=== PATIENT | male | born 1990 | race Two or more races ===

== ENCOUNTER 2022-08-17 00:30 | Emergency (ER) | payer MEDICAID ==
[~2022-08-17] VITALS: Ht 170.2 cm; Wt 122.8 kg
[2022-08-17 00:47] VITALS: BP 127/83
[2022-08-17 01:27] LABS: Urine Bacteria NONE SEEN /hpf (None Seen); Urine Blood 2+ /uL (Negative); Urine Hyaline Cast FEW /lpf (0 - 2); Urine Mucus FEW (None Seen); Urine Specific Gravity 1.032 (1.001-1.035); Urine WBC 3 /hpf (0 - 3)
[2022-08-17 01:40] LABS: Eosinophils % (auto) 1.9 % (0.0-7.0); Mean Corpuscular Hemoglobin 30.3 pg (28.0-32.0); Mean Corpuscular Hgb Conc. 34.8 g/dL (32.0-36.0); Neutrophils % (auto) 53.5 % (37.0-80.0)
[2022-08-17 01:45] LABS: Basophils # (auto) 0.1 10 ^3/uL (0-0.2); Basophils % (auto) 0.6 % (0.0-2.0); Eosinophils # (auto) 0.2 10 ^3/uL (0-0.8); Hematocrit 51.7 % (41.0-53.0); Lymphocytes # (auto) 3.8 10 ^3/uL (0.4-5.4); Mean Corpuscular Volume 87.1 fL (80.0-100.0); Monocytes # (auto) 0.8 10 ^3/uL (0-1.3); Neutrophils # (auto) 5.6 10 ^3/uL (1.6-8.6); Nucleated Red Blood Cells % 0.1 %; Red Blood Cells 5.94 10^6/uL (4.5-5.90); Red Cell Distribution Width 13.1 % (11.8-14.3); White Blood Cell 10.5 10^3/uL (4.4-10.8)
[2022-08-17 01:57] LABS: Albumin 4.7 g/dL (3.4-5.0); BUN/Creatinine Ratio 20.7; Calcium 9.2 mg/dL (8.5-10.1); Potassium 3.7 mmol/L (3.5-5.1)
[2022-08-17 02:00] LABS: Bilirubin, Total 1.1 mg/dL (0.2-1.0); Total Protein 8.5 g/dL (6.4-8.2)
[2022-08-17] MEDS ORDERED: ONDANSETRON ODT 4 MG TAB PO ONE (03:30)
[2022-08-17] MEDS ORDERED: CIPROFLOXACIN HCL 500 MG TAB PO ONE (06:00)
[2022-08-17] MEDS ORDERED: CIPR-173 PO (06:03)
== END 2022-08-17 07:11 | disposition home or self-care (01) ==
LOC: ER 00:30
DX: N39.0 Urinary tract infection, site not specified (principal)
CPT/HCPCS: 36415; 74176; 80053; 81001; 85025; 99284; Q0162

== ENCOUNTER 2024-05-29 06:27 | Inpatient (IN) | payer MEDICAID ==
[~2024-05-29] VITALS: Ht 172.7 cm; Wt 124.0 kg
[~2024-05-29 06:27] MED LIST: CIPR-173 PO
[2024-05-29] MEDS: HYDROcodone-ACET 10/325MG TAB PO ONE (07:48)
[2024-05-29 07:51] LABS: Basophils # (auto) 0.1 10 ^3/uL (0-0.2); Basophils % (auto) 0.7 % (0.0-2.0); Eosinophils # (auto) 0.2 10 ^3/uL (0-0.8); Hematocrit 46.4 % (41.0-53.0); Hemoglobin 16.4 g/dL (13.5-17.5); Lymphocytes # (auto) 2.5 10 ^3/uL (0.4-5.4); Lymphocytes % (auto) 24.3 % (10.0-50.0); Mean Corpuscular Hemoglobin 31.7 pg (28.0-32.0); Mean Corpuscular Hgb Conc. 35.3 g/dL (32.0-36.0); Mean Corpuscular Volume 89.7 fL (80.0-100.0); Monocytes # (auto) 0.9 10 ^3/uL (0-1.3); Monocytes % (auto) 8.4 % (0.0-12.0); Neutrophils # (auto) 6.6 10 ^3/uL (1.6-8.6); Neutrophils % (auto) 64.6 % (37.0-80.0); Nucleated Red Blood Cells % 0.1 %; Platelet Count (auto) 291 10^3/uL (140-450); Red Blood Cells 5.17 10^6/uL (4.5-5.90); White Blood Cell 10.2 10^3/uL (4.4-10.8)
[2024-05-29 07:52] LABS: Chloride 103 mmol/L (98-107); Sodium 138 mmol/L (136-145)
[2024-05-29 07:53] LABS: Anion Gap 8 (5-15); Carbon Dioxide 27 mmol/L (20-31)
[2024-05-29 07:54] LABS: Calcium 9.9 mg/dL (8.7-10.4)
[2024-05-29 07:58] LABS: Glucose 107 mg/dL (74-106)
[2024-05-29 07:59] LABS: BUN/Creatinine Ratio 17.1 (10.0-20.0); Blood Urea Nitrogen 14 mg/dL (9-23)
[2024-05-29] MEDS: methylPREDNISolone SOD SUCC 125 MG/2 ML VL IV ONE (09:04)
[2024-05-29] MEDS: diphenhdrAMINE HCL 50 MG/1 ML VL IV ONE (09:05)
[2024-05-29] MEDS ORDERED: ONDANSETRON HCL 4 MG/2 ML VIAL IV PRN (10:45)
[2024-05-29] MEDS ORDERED: MORPHINE SULFATE INJ 2 MG/ml SYRG IV PRN (10:45)
[2024-05-29] MEDS ORDERED: NITROGLYCERIN 0.4 MG SL TAB SL PRN (10:45)
[2024-05-29] MEDS ORDERED: DOCUSATE SOD 100 MG CAP PO PRN (10:45)
[2024-05-29] MEDS: SODIUM CHLORIDE 0.9% 1,000 ML IV SCH (10:51)
[2024-05-29] MEDS: CLINDAMYCIN 600MG IV 50 ML IV SCH (15:19)
[2024-05-29] MEDS: HYDROcodone-ACET 5/325MG TAB PO PRN (18:46)
[2024-05-29] MEDS: methylPREDNISolone SOD SUCC 125 MG/2 ML VL IV SCH (22:05)
[2024-05-29] MEDS ORDERED: ENAL1TAB48 PO (22:50)
[2024-05-29 23:59] VITALS: BP 145/78; PULSE 72; RESP 18; TEMP 97.9; O2SAT 94
[2024-05-30] VITALS (9 sets, daily range): BP systolic 108–135; BP diastolic 63–78; PULSE 17–82; RESP 16–19; TEMP 97.6–98.4; O2SAT 94–95
[2024-05-30] MEDS: ENALAPRIL MALEATE 10 MG TAB PO ONE (00:34)
[2024-05-30] MEDS ORDERED: LEVO50TA7 PO (00:56)
[2024-05-30 07:38] LABS: Basophils # (auto) 0 10 ^3/uL (0-0.2); Basophils % (auto) 0.1 % (0.0-2.0); Eosinophils # (auto) 0 10 ^3/uL (0-0.8); Hematocrit 46.4 % (41.0-53.0); Hemoglobin 16.5 g/dL (13.5-17.5); Lymphocytes # (auto) 2.1 10 ^3/uL (0.4-5.4); Lymphocytes % (auto) 13.6 % (10.0-50.0); Mean Corpuscular Hgb Conc. 35.6 g/dL (32.0-36.0); Monocytes # (auto) 0.8 10 ^3/uL (0-1.3); Monocytes % (auto) 5.5 % (0.0-12.0); Neutrophils # (auto) 12.3 10 ^3/uL (1.6-8.6); Neutrophils % (auto) 80.8 % (37.0-80.0); Nucleated Red Blood Cells % 0.1 %; Platelet Count (auto) 335 10^3/uL (140-450); Red Blood Cells 5.15 10^6/uL (4.5-5.90); Red Cell Distribution Width 13.2 % (11.8-14.3); White Blood Cell 15.2 10^3/uL (4.4-10.8)
[2024-05-30 07:53] LABS: Alanine Aminotransferase 49 U/L (7-40); Albumin 4.8 g/dL (3.2-4.8); Alkaline Phosphatase 60 U/L (46-116); Anion Gap 10 (5-15); Aspartate Aminotransferase 10 U/L (13-40); BUN/Creatinine Ratio 19.5 (10.0-20.0); Bilirubin, Total 0.7 mg/dL (0.2-1.0); Blood Urea Nitrogen 16 mg/dL (9-23); Calcium 9.8 mg/dL (8.7-10.4); Carbon Dioxide 24 mmol/L (20-31); Chloride 103 mmol/L (98-107); Glucose 141 mg/dL (74-106); Potassium 3.9 mmol/L (3.5-5.1); Sodium 137 mmol/L (136-145); Total Protein 7.7 g/dL (5.7-8.2)
[2024-05-30] MEDS: diphenhdrAMINE HCL 50 MG/1 ML VL IV PRN (22:27)
[2024-05-30] MEDS: ENALAPRIL MALEATE 10 MG TAB PO SCH (22:27)
[2024-05-31 01:00] VITALS: BP 118/66; PULSE 73; RESP 17; TEMP 97.7; O2SAT 97
[2024-05-31 05:00] VITALS: BP 120/68; PULSE 59; RESP 17; TEMP 97.6; O2SAT 96
[2024-05-31 08:00] VITALS: PULSE 51; RESP 16; O2SAT 96
[2024-05-31 09:00] VITALS: BP 113/69; PULSE 51; RESP 18; TEMP 97.9; O2SAT 97
[2024-05-31] MEDS ORDERED: METH4PAK PO (12:23)
[2024-05-31] MEDS ORDERED: HYDR-4902 PO (12:23)
[2024-05-31] MEDS ORDERED: CLIN1CAP70 PO (12:23)
[2024-05-31 13:00] VITALS: BP 117/71; PULSE 62; RESP 18; TEMP 98; O2SAT 96
[2024-05-31 17:00] VITALS: BP 119/67; PULSE 67; RESP 18; TEMP 97.9; O2SAT 94
== END 2024-05-31 17:41 | disposition home or self-care (01) | DRG 383 ==
LOC: ER 06:27 → OVERFLOW 10:40 → WEST WING 23:45
PROVIDERS: ADMIT Nurse Practitioner Family; ATTEND Family Medicine
DX: L03.211 Cellulitis of face (principal); E78.00 Pure hypercholesterolemia, unspecified; I10 Essential (primary) hypertension; R51.9 Headache, unspecified
CPT/HCPCS: 36415; 70450; 80048; 80053; 85025; 96374; 96375; 99291; G0378; J3490

== ENCOUNTER 2024-06-11 11:02 | Emergency (ER) | payer MEDICAID ==
[~2024-06-11] VITALS: Ht 182.9 cm; Wt 122.6 kg
[~2024-06-11 11:02] MED LIST changes: -CIPR-173 PO; +CLIN1CAP70 PO; +ENAL1TAB48 PO; +HYDR-4902 PO; +LEVO50TA7 PO; +METH4PAK PO
[2024-06-11 12:01] VITALS: BP 131/92; PULSE 64; RESP 17; TEMP 98.4; O2SAT 96
[2024-06-11 12:04] LABS: Basophils # (auto) 0.1 10 ^3/uL (0-0.2); Basophils % (auto) 0.8 % (0.0-2.0); Eosinophils # (auto) 0.2 10 ^3/uL (0-0.8); Eosinophils % (auto) 2.1 % (0.0-7.0); Hematocrit 46.9 % (41.0-53.0); Hemoglobin 16.6 g/dL (13.5-17.5); Lymphocytes # (auto) 2.8 10 ^3/uL (0.4-5.4); Lymphocytes % (auto) 38.2 % (10.0-50.0); Mean Corpuscular Hemoglobin 31.9 pg (28.0-32.0); Mean Corpuscular Hgb Conc. 35.5 g/dL (32.0-36.0); Mean Corpuscular Volume 90.1 fL (80.0-100.0); Monocytes # (auto) 0.6 10 ^3/uL (0-1.3); Monocytes % (auto) 8.1 % (0.0-12.0); Neutrophils # (auto) 3.7 10 ^3/uL (1.6-8.6); Neutrophils % (auto) 50.8 % (37.0-80.0); Nucleated Red Blood Cells % 0.1 %; Platelet Count (auto) 262 10^3/uL (140-450); White Blood Cell 7.2 10^3/uL (4.4-10.8)
[2024-06-11 12:29] LABS: Alanine Aminotransferase 69 U/L (7-40); Albumin 4.7 g/dL (3.2-4.8); Alkaline Phosphatase 54 U/L (46-116); Anion Gap 5 (5-15); Aspartate Aminotransferase 25 U/L (13-40); Blood Urea Nitrogen 11 mg/dL (9-23); Carbon Dioxide 29 mmol/L (20-31); Chloride 105 mmol/L (98-107); Glucose 95 mg/dL (74-106); Lipase 42 U/L (12-53); Potassium 4.8 mmol/L (3.5-5.1); Sodium 139 mmol/L (136-145); Total Protein 7.3 g/dL (5.7-8.2)
[2024-06-11] MEDS: KETOROLAC TROMETH 60MG/2ML VIAL IM ONE (13:04)
[2024-06-11] MEDS ORDERED: DOCU-94 PO (13:07)
== END 2024-06-11 13:16 | disposition home or self-care (01) ==
LOC: ER 11:02
DX: K57.30 Diverticulosis of large intestine without perforation or abscess without bleeding (principal); K76.0 Fatty (change of) liver, not elsewhere classified; K59.00 Constipation, unspecified; I10 Essential (primary) hypertension; Z79.890 Hormone replacement therapy; Z79.899 Other long term (current) drug therapy
CPT/HCPCS: 36415; 74176; 80053; 83690; 85025; 96372; 99285; J1885

== ENCOUNTER 2024-12-27 10:44 | Emergency (ER) | payer MEDICAID ==
[~2024-12-27] VITALS: Ht 170.2 cm; Wt 126.9 kg
[~2024-12-27 10:44] MED LIST changes: +DOCU-94 PO
--- NOTE | 2024-12-27 11:45 | ED.PDOC ---
GI ASSESSMENT HPI Comments 34 y.o male with PMHx of HTN and hyperlipidemia, presents to the ED for a chief complaint of right sided abdominal pain associated with distention and nausea that started 3 days ago. Patient reports pain is intermittent, when it presents it is described as sharp, non radiating and has no alleviating factors. Patient reports sometimes pain presents after drinking water but has no other worsening factors, despite eating or moving. Patient also mentions feeling constipated, last bowel movement was yesterday but was described as very minimal. Patient denies any vomiting, diarrhea, fever, chills, dysuria. Patient reports occasional use of alcohol. Chief Complaint: Abdominal Pain Time Seen by MD: 11:00 Primary Care Provider: LUCIANO Reviewed Notes: Nurses Notes, Medications, Allergies Allergies: Coded Allergies: Penicillins (Verified Allergy, Unknown, 12/27/24) Home Meds Active Scripts Ibuprofen Micronized (Ibuprofen) 800 Mg Tab, 800 MG PO Q8HP PRN, #30 TAB prn pain, take with food Prov:WANDA WOOTEN MD 12/27/24 Acetaminophen (Tylenol Extra Strength) 500 Mg Tab, 1000 MG PO Q6HP PRN, #30 TAB prn pain Prov:WANDA WOOTEN MD 12/27/24 Pantoprazole Sodium Sesquihydr (Protonix) 40 Mg Tab, 40 MG PO DAILY, #30 TAB Prov:WANDA WOOTEN MD 12/27/24 Ondansetron Odt 4MG Tab (ZOFRAN PO) 4 Mg Tb, 4 MG PO TID PRN, #30 TAB prn n/v ODT TAB-DISSOLVE IN MOUTH, THEN SWALLOW Prov:WANDA WOOTEN MD 12/27/24 Docusate Sodium (Colace) 100 Mg Cap, 1 CAP PO BID, #30 CAP Prov:LAKE GAONA 06/11/24 Hydrocodone-Acetaminophen (Hydrocodone Bitartrate/AC 5-325 mg) 1 Tab Tab, 1 TAB PO QID PRN, #30 TAB Prov:KIKO DAWSON MD 05/31/24 Methylprednisolone (Medrol Dosepak) 4 Mg Jasen, 4 MG PO UD, #21 TAB UAD Prov:KIKO DAWSON MD 05/31/24 Clindamycin Hcl (Clindamycin Hcl) 300 Mg Cap, 1 CAP PO TID, #30 CAP Prov:KIKO DAWSON MD 05/31/24 Reported Medications Levothyroxine Sodium (Levothyroxine Sodium) 50 Mcg Tab, 50 MCG PO QAM for 30 Days, MCG 05/30/24 Enalapril Maleate (Enalapril Maleate) 20 Mg Tab, 1 TAB PO DAILY 05/29/24 Information Source: Patient Mode of Arrival: Ambulatory Timing: Days (3) Duration: Intermittent Quality: Sharp Vomitus: None Stool: Minimal Severity: Moderate Recent: None Recent Hx of: None Pain Location: RUQ, RLQ Modifying Factors: Nothing Associated sign and symptoms: Nausea, Abdominal Pain Past Medical History PAST MEDICAL HISTORY: High Lipids, HTN Surgical History: Denies all surgeries Family History Family History: Reviewed,noncontributory to illness Social History Smoker: Non-Smoker Alcohol: Occasionally Drugs: Denies Drug Use Lives In: Home Constitutional: denies: chills, diaphoresis, fatigue, fever, malaise, sweats, weakness, others EENTM: denies: blurred vision, double vision, ear bleeding, ear discharge, ear drainage, ear pain, ear ringing, eye pain, eye redness, hearing loss, mouth pain, mouth swelling, nasal discharge, nose bleeding, nose congestion, nose pain, photophobia, tearing, throat pain, throat swelling, voice changes, others Respiratory: denies: cough, hemoptysis, orthopnea, SOB at rest, shortness of breath, SOB with excertion, stridor, wheezing, others Cardiovascular: denies: chest pain, dizzy spells, diaphoresis, Dyspnea on exertion, edema, irregular heart beat, left arm pain, lightheadedness, palpitations, PND, syncope, others Gastrointestinal: reports: abdomen distended, abdominal pain, constipated, nausea; denies: blood streaked bowels, diarrhea, dysphagia, difficulty swallowing, hematemesis, melena, poor appetite, poor fluid intake, rectal ble eding, rectal pain, vomiting, others Genitourinary: denies: burning, dysuria, flank pain, frequency, hematuria, incontinence, penile discharge, penile sore, pain, testicle pain, testicle swelling, urgency, others Neurological: denies: dizziness, fainting, headache, left sided numbness, left sided weakness, numbness, paresthesia, pre-existing deficit, right sided numbness, right sided weakness, seizure, speech problems, tingling, tremors, weakness, others Musculoskeletal: denies: back pain, gout, joint pain, joint swelling, muscle pain, muscle stiffness, neck pain, others Integumetry: denies: bruises, change in color, change in hair/nails, dryness, laceration, lesions, lumps, rash, wounds, others Allergic/Immunocompromised: denies: Difficulty Healing, Frequent Infections, Hives, Itching, others Hematologic/Lymphatic: denies: anemia, blood clots, easy bleeding, easy bruising, swollen glands, others Endocrine: denies: excessive hunger, excessive sweating, excessive thirst, excessive urination, flushing, intolerance to cold, intolerance to heat, unexplained weight gain, unexplained weight loss, others Psychiatric: denies: anxiety, bipolar disorder, depression, hopeless, panic disorder, schizophrenia, sleepless, suicidal, others All Other Systems: Reviewed and Negative Physical Exam General Appearance: No Apparent Distress, Obese HEENT: Other (Pupils and face symmetric. Moist mucous membranes.) Neck: Full Range of Motion, Normal Inspection Respiratory: Lungs Clear, No Accessory Muscle Use, No Respiratory Distress, Normal Breath Sounds Cardiovascular: No Edema, No JVD, Regular Rate/Rhythm Breast Exam: Deferred Gastrointestinal: Epigastric, LUQ, RLQ, RUQ, Soft, Tenderness Genitalia: Deferred Pelvic: Deferred Rectal: Deferred Extremities: Normal inspection, Normal range of motion, Non-tender, No pedal edema Neurologic: Alert (Oriented x4), Normal Affect, Normal Mood, Other (Ambulatory without difficulty) Cerebellar Function: NOT DONE Reflexes: NOT DONE Skin: Dry, Normal Color, Warm Lymphatic: NOT DONE Was a procedure done? Was a procedure done?: No GI differential Dx Differential Diagnosis: Appendicitis, Bowel Obstruction, Cholangitis, Cholecystitis, Constipation, Esophagitis, Gastritis/PUD, Gastroenteritis, Inflammatory BD, Pancreatitis, UTI, Electrolyte Imbalance, Food Poisoning, Bacterial, Viral, Stress Ulcer, Kidney Stone X-Ray, Labs, Meds, VS Vital Signs Date Time Temp Pulse Resp B/P (MAP) Pulse Ox O2 Delivery O2 Flow Rate FiO2 12/27/24 14:39 97.6 76 15 130/78 (95) 95 97.6 12/27/24 11:47 Room Air* 0 21 12/27/24 11:30 98.1 88 15 112/71 (85) 96 98.1 12/27/24 10:58 98.0 86 20 142/88 (106) 95 98.0 Lab Test 12/27/24 11:31 12/27/24 10:59 Range/Units White Blood Count 6.9 4.4-10.8 10^3/uL Red Blood Count 5.74 4.5-5.90 10^6/uL Hemoglobin 17.5 13.5-17.5 g/dL Hematocrit 50.0 41.0-53.0 % Mean Corpuscular Volume 87.2 80.0-100.0 fL Mean Corpuscular Hemoglobin 30.4 28.0-32.0 pg Mean Corpuscular Hemoglobin Concent 34.9 32.0-36.0 g/dL Red Cell Distribution Width 13.3 11.8-14.3 % Platelet Count 255 140-450 10^3/uL Mean Platelet Volume 9.3 6.9-10.8 fL Neutrophils (%) (Auto) 74.0 37.0-80.0 % Lymphocytes (%) (Auto) 15.0 10.0-50.0 % Monocytes (%) (Auto) 9.8 0.0-12.0 % Eosinophils (%) (Auto) 1.0 0.0-7.0 % Basophils (%) (Auto) 0.2 0.0-2.0 % Neutrophils # (Auto) 5.1 1.6-8.6 10 ^3/uL Lymphocytes # (Auto) 1.0 0.4-5.4 10 ^3/uL Monocytes # (Auto) 0.7 0-1.3 10 ^3/uL Eosinophils # (Auto) 0.1 0-0.8 10 ^3/uL Basophils # (Auto) 0 0-0.2 10 ^3/uL Nucleated Red Blood Cells 0.0 % Sodium Level 137 136-145 mmol/L Potassium Level 4.0 3.5-5.1 mmol/L Chloride Level 102 98-107 mmol/L Carbon Dioxide Level 27 20-31 mmol/L Anion Gap 8 5-15 Blood Urea Nitrogen 15 9-23 mg/dL Creatinine 0.98 0.700-1.30 mg/dL Glomerular Filtration Rate Calc 102 >90 mL/min BUN/Creatinine Ratio 15.3 10.0-20.0 Serum Glucose 98 74-106 mg/dL Lactic Acid Level 1.1 0.4-2.0 mmol/L Calcium Level 10.0 8.7-10.4 mg/dL Total Bilirubin 0.9 0.2-1.0 mg/dL Aspartate Amino Transferase (AST) 42 H 13-40 U/L Alanine Aminotransferase (ALT) 98 H 7-40 U/L Alkaline Phosphatase 54 46-116 U/L Total Protein 7.8 5.7-8.2 g/dL Albumin 5.1 H 3.2-4.8 g/dL Lipase 39 12-53 U/L Urine Color Yellow Yellow Urine Clarity Clear Clear Urine pH 5.5 5.0-9.0 Urine Specific [place] 1.027 1.001-1.035 Urine Protein Negative Negative Urine Ketones Negative Negative Urine Blood 2+ H Negative /uL Urine Nitrite Negative Negative Urine Bilirubin Negative Negative Urine Urobilinogen 2 H Negative mg/dL Urine Leukocyte Esterase Negative Negative /uL Urine RBC 8 0 - 3 /hpf Urine Microscopic WBC 2 0-3 /HPF Urine Squamous Epithelial Cells Few <5 /hpf Urine Bacteria None seen None Seen /hpf Urine Mucus Few None Seen Urine Glucose Normal Normal mg/dL Current Medications Medications (Trade) Dose Ordered Sig/Luda Route Start Time Stop Time Status Last Admin Sodium Chloride 1,000 ml @ 1,000 mls/hr Q1H ONCE IV 12/27/24 11:30 12/27/24 12:29 DC 12/27/24 11:52 Pantoprazole Sodium (Protonix) 40 mg ONCE ONCE IV 12/27/24 11:30 12/27/24 11:31 DC 12/27/24 11:[address] [address] Ph: [phone] DIAGNOSTIC IMAGING Diagnostic Imaging Report : [id number] Signed PATIENT: ANJELICA GARCIA ACCT: [id number] UNIT: [id number] : 1990 LOC: ER ROOM / BED: / AGE / SEX: 34 / M ADM STATUS: REG ER SERVICE [id number] ORDERING PHYSICIAN: WANDA WOOTEN MD PROCEDURE(s): ABPL - CT AB PEL WO CON-NO ORAL OR IV REASON: epig pain rad to RLQ, nausea ORDER NUMBER(s): [id number], ACCESSION NUMBER(s): [id number] Exam: CT CT AB PEL WO CON-NO ORAL OR IV History: epig pain rad to RLQ, nausea Comparison Study: CT CT AB PEL WO CON-NO ORAL OR IV on DOS: 06/11/24, CT ABD PELVIS WO CONTRAST on DOS: 08/17/22 Technique: Multidetector spiral CT of the abdomen and pelvis was performed from lung bases to pubic symphysis. Imaging was performed without IV contrast. Axial, coronal and sagittal multiplanar reformats were obtained from the axial data set by the technologist. Radiation dose : Abdomen/Pelvis: CTDIvol 23 mGy, DLP 1714 mGy*cm. Findings: Evaluation of solid organs is limited due to lack of intravenous contrast use. Lung Bases: Nodule in the left lung base measuring up to 15 mm similar to prior. Patchy ground-glass opacities in the lung bases. Liver: Diffuse hepatic steatosis. Gallbladder and biliary Tree: Unremarkable Spleen: Unremarkable Pancreas: The pancreas is grossly normal in appearance. Adrenal Glands: Unremarkable Kidneys: Left renal cyst. No hydronephrosis or nephrolithiasis. Bladder: Grossly unremarkable for degree of distention. Bowel: The stomach is grossly normal in appearance. Few mildly prominent loops of small bowel in the mid abdomen with air-fluid levels. Normal appendix is visualized in the right lower quadrant without findings of appendicitis. Ascites: Absent Lymphadenopathy: Subcentimeter mesenteric lymph nodes. Abdominal wall and Mesentery: Unremarkable. Vasculature: The visualized abdominal aorta is normal in size and caliber. Evaluation of abdominal and pelvic vessels is limited due to lack of intravenous contrast. Pelvic Organs: Unremarkable Musculoskeletal: No aggressive focal bony lesions, acute fractures or dislocation. IMPRESSION: 1. Few prominent loops of small bowel in the mid abdomen. Subcentimeter mesenteric lymph nodes. Consider enteritis or other small bowel pathology. Normal-appearing appendix identified. Clinical correlation and continued follow-up is recommended. 2. Diffuse hepatic steatosis. Left renal cyst. 3. Stable nodule at the left lung base measuring up to 15 mm. Patchy ground- glass opacities in the lung bases. Consider dedicated chest CT. Radiation optimization: All CT scans at this facility use at least one of these dose optimization techniques: Automated exposure control mA and/or kV adjustment per patient size (includes targeted exams where dose is matched to clinical indication) or iterative reconstruction. HS:Y ATED BY: TIMUR MARTINEZ MD DICTATED DATE/TIME: 12/27/241158 SIGNED BY: TIMUR MARTINEZ MD SIGNED DATE/TIME: 12/27/241158 CC: PROCEDURE(s): CX2CT - CHEST WITHOUT CONTRAST REASON: upper abd pain ORDER NUMBER(s): [id number], ACCESSION NUMBER(s): [id number] Procedure: CT CHEST WITHOUT CONTRAST Reason for study/Clinical History: upper abd pain Comparison Study: None available at time of dictation. Exam Date: 12/27/2024 , 08/17/2022 TECHNIQUE: Multidetector CT of the chest was performed from the lung apices to the upper abdomen without the use of intravenous contract. Axial, coronal and sagittal multiplanar reformats were performed. Radiation Dose Information: CT Dose: CTDI volume is 30.38 mGy. Dose-length product is 1074.33 mGy*cm The dose indicators for CT are the volume Computed Tomography (CT) Dose Index (CTDIvol) and the Dose Length Product (DLP), and are measured in units of mGy and mGy-cm, respectively. These indicators are not patient dose, but values generated from the CT scanner acquisition factors. The report includes radiation exposure data for exposures received during this examination. FINDINGS: Lower neck: Normal thyroid. Lungs: Minimal focal infiltrate in the right lower lobe and left lower lobe. 1.5 cm noncalcified nodule left lower lobe Heart/Vascular Structures: Heart size is enlarged. No pericardial effusion. Lymph Nodes: No enlarged lymph nodes. Pleura: No pleural effusion or significant pneumothorax. Musculoskeletal: No acute osseous abnormality. Soft tissues: Normal. Upper abdomen: Limited portions of the upper abdomen are unremarkable. IMPRESSION: 1. Stable 1.5 cm nodule left lower lobe unchanged from old exams. Faint ground- glass densities both lower lung zones also unchanged from prior exam. Radiation optimization: All CT scans at this facility use at least one of these dose optimization techniques: automated exposure control mA and/or kV adjustment per patient size (includes targeted exams where dose is matched to clinical indication) or iterative reconstruction. X-Ray, Labs, Meds, VS Comment 44-year-old male with history of hypertension and dyslipidemia complaining of abdominal pain and nausea Vitals remarkable for initial BP 142/88 Exam remarkable for epigastric, bilateral upper quadrant and right lower quadrant tenderness to palpation Rhythm strip independently interpreted by me: Sinus rhythm, rate 86, no ectopy. CT abdomen and pelvis: IMPRESSION: 1. Few prominent loops of small bowel in the mid abdomen. Subcentimeter mesenteric lymph nodes. Consider enteritis or other small bowel pathology. Normal-appearing appendix identified. Clinical correlation and continued follow-up is recommended. 2. Diffuse hepatic steatosis. Left renal cyst. 3. Stable nodule at the left lung base measuring up to 15 mm. Patchy ground- glass opacities in the lung bases. Consider dedicated chest CT. CT chest: IMPRESSION: 1. Stable 1.5 cm nodule left lower lobe unchanged from old exams. Faint ground- glass densities both lower lung zones also unchanged from prior exam. CBC, lipase, lactate and UA unremarkable for any abnormality of acute significance. CMP showed very mild transaminitis; doubt hepatitis in favor of fatty liver as the cause. Pt treated with the following in the ED: 1L 0.9 NS IV bolus, morphine 4mg IV, zofran 4mg IV, protonix 40 mg IV Re-evaluation, patient states symptoms have improved. Vitals were stable. Repeat abdominal exam was benign, and patient is tolerating p.o. fluids. S ymptoms are likely due to enteritis. Patient appears stable for discharge with a prescription for medication for symptomatic treatment and close follow-up with his primary physician. Time of 1ST Reevaluation: 11:40 Reevaluation 1ST: Unchanged Time of 2ND Reevaluation: 13:28 Reevaluation 2ND: Improved Patient Education/Counseling: Diagnosis, Treatment, Prognosis Family Education/Counseling: No Family Present Departure 1 Departure Time of Disposition: 13:28 Impression: Primary Impression: Abdominal pain Additional Impression: Nausea Disposition: 01 HOME / SELF CARE / HOMELESS Condition: Stable Additional Instructions: Your blood tests were unremarkable except for mildly elevated liver function tests, which may be due to fatty liver. Your CT scan showed a fatty liver and possible enteritis, which is usually caused by a virus, and should resolve on its own. I have prescribed medication to treat your symptoms. Follow-up with your primary doctor in 1-2 days. Return to ER for persistent or worsening symptoms. e-Prescriptions Ibuprofen Micronized (Ibuprofen) 800 Mg Tab 800 MG PO Q8HP PRN, #30 TAB prn pain, take with food Prov: WANDA WOOTEN MD 12/27/24 Acetaminophen (Tylenol Extra Strength) 500 Mg Tab 1000 MG PO Q6HP PRN, #30 TAB prn pain Prov: WANDA WOOTEN MD 12/27/24 Pantoprazole Sodium Sesquihydr (Protonix) 40 Mg Tab 40 MG PO DAILY, #30 TAB Prov: WANDA WOOTEN MD 12/27/24 Ondansetron Odt 4MG Tab (ZOFRAN PO) 4 Mg Tb 4 MG PO TID PRN, #30 TAB prn n/v ODT TAB-DISSOLVE IN MOUTH, THEN SWALLOW Prov: WANDA WOOTEN MD 12/27/24 Discharged With: Relative Critical Care Note Critical Care Time?: No Stability Stability form required: No I personally scribed for WANDA WOOTEN MD (JOSE F) on 12/27/24 at 11:45. Electronically submitted by Naomi Waldrop ([facility]). I personally scribed for WANDA WOOTEN MD (JOSE F) on 12/27/24 at 12:02. Electronically submitted by Naomi Waldrop ([facility]). WANDA WOOTEN MD Dec 27, 2024 11:45
[2024-12-27] MEDS: PANTOPRAZOLE 40 MG/10 ML VIAL INJ IV ONE (11:48)
[2024-12-27] MEDS: SODIUM CHLORIDE 0.9% 1,000 ML IV ONE (11:52)
[2024-12-27] MEDS: MORPHINE SULFATE 4 MG/ML SYR/VIAL IV ONE (11:52)
[2024-12-27] MEDS: ONDANSETRON HCL 4 MG/2 ML VIAL IV ONE (11:53)
[2024-12-27 12:00] LABS: Basophils # (auto) 0 10 ^3/uL (0-0.2); Basophils % (auto) 0.2 % (0.0-2.0); Eosinophils # (auto) 0.1 10 ^3/uL (0-0.8); Hemoglobin 17.5 g/dL (13.5-17.5); Mean Corpuscular Hemoglobin 30.4 pg (28.0-32.0); Mean Corpuscular Hgb Conc. 34.9 g/dL (32.0-36.0); Mean Corpuscular Volume 87.2 fL (80.0-100.0); Monocytes # (auto) 0.7 10 ^3/uL (0-1.3); Monocytes % (auto) 9.8 % (0.0-12.0); Neutrophils # (auto) 5.1 10 ^3/uL (1.6-8.6); Platelet Count (auto) 255 10^3/uL (140-450); Red Blood Cells 5.74 10^6/uL (4.5-5.90); Red Cell Distribution Width 13.3 % (11.8-14.3); White Blood Cell 6.9 10^3/uL (4.4-10.8)
--- NOTE | 2024-12-27 12:01 | DVH ---
Exam: CT CT AB PEL WO CON-NO ORAL OR IV History: epig pain rad to RLQ, nausea Comparison Study: CT CT AB PEL WO CON-NO ORAL OR IV on DOS: 06/11/24, CT ABD PELVIS WO CONTRAST on D OS: 08/17/22 Technique: Multidetector spiral CT of the abdomen and pelvis was performed from lung bases to pubic symphysis. Imaging was performed without IV contrast. Axial, coronal and sagittal multiplanar reform ats were obtained from the axial data set by the technologist. Radiation dose : Abdomen/Pelvis: CTDIvol 23 mGy, DLP 1714 mGy*cm. Findings: Evaluation of solid organs is limited due to lack of intravenous contrast use. Lung Bases: Nodule in the left lung base measuring up to 15 mm similar to prior. Patchy ground-glass opacities in the lung bases. Liver: Diffuse hepatic steatosis. Gallbladder and biliary Tree: Unremarkable Spleen: Unremarkable Pancreas: The pancreas is grossly normal in appearance. Adrenal Glands: Unremarkable Kidneys: Left renal cyst. No hydronephrosis or nephrolithiasis. Bladder: Grossly unremarkable for degree of distention. Bowel: The stomach is grossly normal in appearance. Few mildly prominent loops of small bowel in the mid abdomen with air-fluid levels. Normal appendix is visualized in the right lower quadrant without findings of appendicitis. Ascites: Absent Lymphadenopathy: Subcentimeter mesenteric lymph nodes. Abdominal wall and Mesentery: Unremarkable. Vasculature: The visualized abdominal aorta is normal in size and caliber. Evaluation of abdominal a nd pelvic vessels is limited due to lack of intravenous contrast. Pelvic Organs: Unremarkable Musculoskeletal: No aggressive focal bony lesions, acute fractures or dislocation. IMPRESSION: 1. Few prominent loops of small bowel in the mid abdomen. Subcentimeter mesenteric lymph nodes. Cons ider enteritis or other small bowel pathology. Normal-appearing appendix identified. Clinical correl ation and continued follow-up is recommended. 2. Diffuse hepatic steatosis. Left renal cyst. 3. Stable nodule at the left lung base measuring up to 15 mm. Patchy ground-glass opacities in the l rylan bases. Consider dedicated chest CT. Radiation optimization: All CT scans at this facility use at least one of these dose optimization kandice hniques: Automated exposure control mA and/or kV adjustment per patient size (includes targeted exams where dose is matched to clinical indication) or iterative reconstruction. HS:Y
[2024-12-27 12:07] LABS: Urine Bacteria None Seen /hpf (None Seen)
[2024-12-27 12:23] LABS: Alanine Aminotransferase 98 U/L (7-40); Albumin 5.1 g/dL (3.2-4.8); Alkaline Phosphatase 54 U/L (46-116); Anion Gap 8 (5-15); Aspartate Aminotransferase 42 U/L (13-40); BUN/Creatinine Ratio 15.3 (10.0-20.0); Blood Urea Nitrogen 15 mg/dL (9-23); Carbon Dioxide 27 mmol/L (20-31); Chloride 102 mmol/L (98-107); Glucose 98 mg/dL (74-106); Lipase 39 U/L (12-53); Sodium 137 mmol/L (136-145); Total Protein 7.8 g/dL (5.7-8.2)
[2024-12-27 12:24] LABS: Bilirubin, Total 0.9 mg/dL (0.2-1.0)
[2024-12-27 12:33] LABS: Urine Blood 2+ /uL (Negative); Urine Clarity Clear (Clear); Urine Color Yellow (Yellow); Urine Mucus FEW (None Seen); Urine Protein, UAD Negative (Negative); Urine Specific Gravity 1.027 (1.001-1.035); Urine Squamous Epithelial Cell FEW /hpf (<5); Urine Urobilinogen 2 mg/dL (Negative); Urine WBC 2 /HPF (0-3); Urine pH 5.5 (5.0-9.0)
--- NOTE | 2024-12-27 13:06 | DVH ---
Procedure: CT CHEST WITHOUT CONTRAST Reason for study/Clinical History: upper abd pain Comparison Study: None available at time of dictation. Exam Date: 12/27/2024 , 08/17/2022 TECHNIQUE: Multidetector CT of the chest was performed from the lung apices to the upper abdomen with out the use of intravenous contract. Axial, coronal and sagittal multiplanar reformats were performed . Radiation Dose Information: CT Dose: CTDI volume is 30.38 mGy. Dose-length product is 1074.33 mGy*cm The dose indicators for CT are the volume Computed Tomography (CT) Dose Index (CTDIvol) and the Dose Length Product (DLP), and are measured in units of mGy and mGy-cm, respectively. These indicators are not patient dose, but values generated from the CT scanner acquisition factors. The report includes radiation exposure data for exposures received during this examination. FINDINGS: Lower neck: Normal thyroid. Lungs: Minimal focal infiltrate in the right lower lobe and left lower lobe. 1.5 cm noncalcified nodu le left lower lobe Heart/Vascular Structures: Heart size is enlarged. No pericardial effusion. Lymph Nodes: No enlarged lymph nodes. Pleura: No pleural effusion or significant pneumothorax. Musculoskeletal: No acute osseous abnormality. Soft tissues: Normal. Upper abdomen: Limited portions of the upper abdomen are unremarkable. IMPRESSION: 1. Stable 1.5 cm nodule left lower lobe unchanged from old exams. Faint ground-glass densities both l ower lung zones also unchanged from prior exam. Radiation optimization: All CT scans at this facility use at least one of these dose optimization kandice hniques: automated exposure control mA and/or kV adjustment per patient size (includes targeted exam s where dose is matched to clinical indication) or iterative reconstruction.
[2024-12-27] MEDS ORDERED: PANT40TA2 PO (13:31)
[2024-12-27] MEDS ORDERED: IBUP-1455 PO (13:31)
[2024-12-27] MEDS ORDERED: ACET-1304 PO (13:31)
[2024-12-27] MEDS ORDERED: ZOFR4T PO (13:31)
[2024-12-27 14:39] VITALS: BP 130/78; PULSE 76; RESP 15; TEMP 97.6; O2SAT 95
== END 2024-12-27 14:40 | disposition home or self-care (01) ==
LOC: ER 10:44
DX: R10.84 Generalized abdominal pain (principal); R11.0 Nausea; E78.5 Hyperlipidemia, unspecified; I10 Essential (primary) hypertension; K59.00 Constipation, unspecified; Z88.0 Allergy status to penicillin; Z79.899 Other long term (current) drug therapy
CPT/HCPCS: 36415; 71250; 74176; 80053; 81001; 83605; 83690; 85025; 96374; 99285; J2470